=== PATIENT | female | born 1990 | race African-American/Black ===

== ENCOUNTER 2018-12-25 15:06 | Emergency (ER) | payer MEDICAID ==
[~2018-12-25] VITALS: Ht 165.1 cm; Wt 90.7 kg
[2018-12-25 15:13] VITALS: BP 112/72
--- NOTE | 2018-12-25 15:23 | NUR ---
ED Nurse Note: walked in to ED due to flu like sx for 4 days. pt c/o coughing, headache, chest congestion. 98.2 F at the triage.
--- NOTE | 2018-12-25 15:51 | NUR ---
ED Nurse Note: Pt signed waiver for screen of urine and consents for xray.
[2018-12-25 16:10] VITALS: BP 112/72
--- NOTE | 2018-12-25 16:10 | NUR ---
ED Nurse Note: Pt unable to wait for Chest Xray results. Pt eloped and can not be found within hospital parameters. No IV access. Gabino Yu and charge nurse informed.
--- NOTE | 2018-12-25 16:13 | Emergency Room Report ---
History of Present Illness General Chief Complaint: Flu Like Symptoms Source: Patient Present Illness [facility] The patient is a 28-year-old female presenting for 3 days of coughing. She admits to subjective fevers and chills. She denies any known sick contacts. She did not have flu shot this year. She denies any medical problems. She denies symptoms including nausea, vomiting, shortness of breath, wheezing, rash , headache, myalgia, dysuria, abdominal pain, diarrhea Allergies: Coded Allergies: IBUPROFEN (Verified Allergy, Unknown, 12/25/18) Patient History Past Medical History: see triage record Pertinent Family History: none Last Menstrual Period: 11/08/18 Reviewed Nursing Documentation: PMH: Agreed; PSxH: Agreed Nursing Documentation-PMH Past Medical History: No Stated History Review of Systems All Other Systems: negative except mentioned in HPI Physical Exam Vital Signs Date Time Temp Pulse Resp B/P (MAP) Pulse Ox O2 Delivery O2 Flow Rate FiO2 12/25/18 15:13 98.2 104 18 112/72 98 Room Air Sp02 EP Interpretation: reviewed, normal General Appearance: no apparent distress, alert, GCS 15, non-toxic Head: normocephalic, atraumatic Eyes: bilateral eye normal inspection, bilateral eye PERRL ENT: hearing grossly normal, normal pharynx, no angioedema, normal voice Respiratory: chest non-tender, lungs clear, normal breath sounds, no respiratory distress, no retraction, no accessory muscle use, no wheezing, speaking full sentences Cardiovascular #1: regular rate, rhythm, no edema Musculoskeletal: back normal, gait/station normal, normal range of motion Neurologic: alert, oriented x3, responsive, motor strength/tone normal, sensory intact, speech normal Psychiatric: judgement/insight normal, memory normal, mood/affect normal, no suicidal/homicidal ideation Skin: normal color, no rash, warm/dry, well hydrated Lymphatic: no adenopathy Medical Decision Making PA Attestation Dr. Prajapati is my supervising physician. Patient management was discussed with my supervising physician Diagnostic Impression: Primary Impression: Influenza-like symptoms ER Course The patient is a 28-year-old female presenting for 3 days of coughing. Differential diagnosis include but not limited to pharyngitis, sinusitis, influenza, bronchitis, PNA, among others PE: Afebrile. NAD HEENT exam unremarkable. No tonsillar edema or erythema. No lymphadenopathy lungs clear to auscultation bilaterally Upon returning to the patient at approximately 4:10 PM to discuss chest x-ray results, it appears the patient has eloped. Laboratory Tests Test 12/25/18 16:15 Urine HCG, Qualitative Negative (NEGATIVE) Microbiology Date/Time Source Procedure Growth Status 12/25/18 15:50 Nasal Nares Influenza Types A,B Antigen (HUNG) - Final Complete Lab Results Impression Flu and preg negative Chest X-Ray Diagnostic Results Chest X-Ray Diagnostic Results : Chest X-Ray Ordered: Yes # of Views/Limited/Complete: 1 View Indication: Other - cough EP Interpretation: Yes PA Xray: Interpretation reviewed, by supervising MD, and agrees with findings. Interpretation: no consolidation, no effusion, no pneumothorax, no acute cardiopulmonary disease Impression: No acute disease Electronically Signed by: Gabino Fernandez PA-C Last Vital Signs Date Time Temp Pulse Resp B/P (MAP) Pulse Ox O2 Delivery O2 Flow Rate FiO2 12/25/18 15:23 104 18 Room Air 12/25/18 15:13 98.2 112/72 98 Status: improved Disposition: ELOPED Condition: Stable Scripts No Active Prescriptions or Reported Meds GABINO FERNANDEZ Dec 25, 2018 16:13
--- NOTE | 2018-12-26 14:23 | Diagnostic Imaging Report ---
Indication: Dyspnea Comparison: None A single view chest radiograph was obtained. Findings: Cardiomediastinal appearance is within normal limits for age. The lungs are clear. Pulmonary vascularity is appropriate. The diaphragmatic contour is smooth and costophrenic angles are sharp. No pleural effusions are identified. The bones are unremarkable. Impression: No acute findings
== END 2018-12-25 16:10 | disposition home or self-care (01) ==
LOC: EMR 15:25
DX: R05 Cough (principal); R07.9 Chest pain, unspecified; R50.9 Fever, unspecified; R51 Headache; J02.9 Acute pharyngitis, unspecified
CPT/HCPCS: 71045; 81025; 86710; 99283